=== PATIENT | male | born 1995 | race Caucasian/White ===

== ENCOUNTER 2019-12-14 18:35 | Emergency (ER) | payer OTHER ==
[~2019-12-14] VITALS: Ht 198.1 cm; Wt 127.0 kg
== END 2019-12-14 21:54 | disposition home or self-care (01) ==
LOC: ED 18:35
DX: R45.851 Suicidal ideations (principal)
CPT/HCPCS: 80053; 80176; 81001; 84443; 85025; 99284; G0480

== ENCOUNTER 2024-10-27 15:24 | Emergency (ER) | payer BC ==
[~2024-10-27] VITALS: Ht 198.1 cm; Wt 135.2 kg
[2024-10-27] MEDS ORDERED: FLUOXETINE HCL40 MG (15:45)
[2024-10-27] MEDS ORDERED: ONDANSETRON HCL4 MG PO (16:11)
[2024-10-27] MEDS ORDERED: ondansetron HCL 4 MG TAB PO ONE (16:15)
[2024-10-27 17:11] VITALS: BP 124/82
== END 2024-10-27 16:24 | disposition home or self-care (01) ==
LOC: ED 15:24
DX: R11.2 Nausea with vomiting, unspecified (principal); F12.90 Cannabis use, unspecified, uncomplicated; F84.0 Autistic disorder; Z79.899 Other long term (current) drug therapy
CPT/HCPCS: 96374; 99283-25; A9270

== ENCOUNTER 2024-10-30 15:22 | Emergency (ER) | payer BC ==
[~2024-10-30] VITALS: Ht 198.1 cm; Wt 137.4 kg
[~2024-10-30 15:22] MED LIST: FLUOXETINE HCL40 MG; ONDANSETRON HCL4 MG PO
--- OUTSIDE RECORDS SUMMARY | 2024-10-30 15:29 | XMS ---
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 EJulio VISIT COUNT (12 MO.) 2 [facility] TOTAL 2 NOTE: Visits indicate total known visits. ED/UCC VISIT TRACKING (12 MO.) 10/30/2024 15:23 [facility] TYPE: Emergency COMPLAINT: - COLD SYMTOPS 10/27/2024 15:24 [facility] TYPE: Emergency COMPLAINT: - FLU SYMPTOMS INPATIENT VISIT TRACKING (12 MO.) No inpatient visits to display in this time frame [email or web address]
[2024-10-30] MEDS ORDERED: KETOROLAC TROMETHAMINE 30 MG/ML VIAL IM ONE (18:00)
[2024-10-30 18:10] LABS: BASOPHILS 0.4 % (0-2); EOSINOPHILS 1.1 % (0-6); HEMATOCRIT 43.2 % (35.0-50.0); HEMOGLOBIN 15.2 g/dL (12.0-18.0); LYMPHOCYTES 23.2 % (24-44); MCH 31.3 (27-36); MCHC 35.2 g/dl (30-36); MCV 88.7 fl (81-99); MONOCYTES 8.2 % (0-12); NEUTROPHILS 67.1 % (39-80); PLATELET COUNT 240 K/uL (140-440); RBC 4.87 M/ul (4.3-5.7)
[2024-10-30 18:25] LABS: ALBUMIN 4.4 g/dL (3.4-5.0); ALBUMIN/GLOBULIN RATIO 1.22 (1.1-2.4); ANION GAP 11.9 (7-21); BILIRUBIN, TOTAL 0.6 mg/dL (0.2-1.0); BUN/CREATININE RATIO 9.32 (6.0-28.6); CALCIUM 9.6 mg/dL (8.5-10.1); CREATININE, SERUM 1.18 mg/dL (0.70-1.30); POTASSIUM 3.9 mmol/L (3.5-5.1)
[2024-10-30] MEDS ORDERED: ONDANSETRON ODT4 MG PO (19:00)
[2024-10-30] MEDS ORDERED: ANUSOL-HC30 GM PR (19:02)
[2024-10-30 19:09] VITALS: BP 127/76
== END 2024-10-30 19:09 | disposition home or self-care (01) ==
LOC: ED 15:22
PROVIDERS: Emergency Medicine
DX: K52.9 Noninfective gastroenteritis and colitis, unspecified (principal); K64.9 Unspecified hemorrhoids; Z79.899 Other long term (current) drug therapy
CPT/HCPCS: 36415; 71045; 80053; 83690; 84484; 85025; 96372; 99284-25; J1885